=== PATIENT | male | born 1955 | race Caucasian/White ===

== ENCOUNTER 2020-06-13 07:35 | Outpatient (CLI) | payer BC, SELFPAY ==
--- NOTE | 2020-06-17 15:05 | SLEEP_ITS ---
Home Sleep Test DATE OF STUDY: 06/13/2020 ORDERING PROVIDER: SANCHEZ Fox. REASON FOR THIS STUDY: Hypersomnia. HISTORY: This patient is a 64-year-old man, 5 feet 9 inches tall, weighing 175 pounds with a body mass index of 25.8. He does occasionally snore and it is occasionally loud enough that others complain about it. He occasionally wakes at night with belching, heartburn or coughing. He rarely awakens from sleep feeling short of breath. He rarely has trouble sleeping with a cold. He does not wake up gasping for breath at night. He rarely has breathing problems at night observed by others. He rarely sweats excessively at night. He does not have pounding heartbeats at night or irregular heartbeats at night. He occasionally falls asleep during the day, occasionally involuntarily, never while driving. He does not have loss of muscle tone with strong emotion. He does not have daytime difficulties due to excessive sleepiness. He does not feel paralyzed on waking or falling asleep. He rarely has vivid dreamlike scenes upon awakening or falling asleep. He is never afraid to go to sleep and does not have nightmares. He rarely remembers his dreams. He occasionally has racing thoughts. He never feels sad, depressed, anxious, and does not have muscular tension. He occasionally notices parts of his body jerking. He rarely kicks at night. He occasionally has crawly achy feelings in his legs. He frequently has leg pain at night. He does not have morning jaw pain and does not grind his teeth at night. He occasionally is bothered by pain during the day and is awakened with pain at night, occasionally feels stiff in the morning with sore achy muscles and pain in the neck and spine. He takes antacids regularly. Bedtime is 08:30 p.m. taking 20 or 30 minutes to fall asleep, typically waking 3-4 times at night, staying awake on average 1 minute. He will look at the clock when he awakens. He wakes for the day at 04:00 a.m. On weekends, he goes to bed at 10:00 p.m. and wakes at 07:00 a.m. so there is some recovery sleep on the weekends. He does not take naps usually. A short nap may be refreshing. MEDICAL COMORBIDITIES: Diabetes mellitus type 2, hypertension, osteoarthritis of the knees, erectile dysfunction, COPD, gastroesophageal reflux disease, vitamin B12 deficiency. MEDICATIONS: 1. Symbicort 160/4.5 two puffs twice a day p.r.n. 2. Meloxicam 15 mg daily. 3. Omeprazole 40 mg delayed release once daily. 4. Amlodipine 10 mg a day. 5. Dulaglutide 1.5 mg injected. 6. Metformin 500 mg 2 tablets b.i.d. 7. Irbesartan 150 mg daily. 8. Sildenafil 20 mg t.i.d. for pulmonary hypertension. HABITS: Never smoked tobacco. Caffeine, 2 servings a day. Alcohol, beer 2 per day. DESCRIPTION OF THE STUDY: On the [place] Sleepiness Scale, his score is 11, elevated. This test was conducted as an unattended type 3 portable home sleep test using a 4 channel monitoring with respiratory effort channel, snoring channel, oxygen saturation channel, and heart rate channel. The study was scored using [facility] guidelines. The apnea-hypopnea index is 2.4, normal. The respiratory disturbance index is slightly elevated 7.1. His lowest desaturation is 86%. His oxygen desaturation index is 1.9. He had 4 apneas all were obstructive. He had 14 hypopneas and 774 snoring events. He had 14 desaturations and spent 1 minute below 88% saturation. Heart rate ranged from 74 to 121. IMPRESSION: This home sleep test does not show evidence of significant sleep-disordered breathing. The apnea-hypopnea index is 2.4. The lowest saturation was 86% briefly. He had minimal apneas and hypopneas. He does not appear to have significant sleep-disordered breathing. The patient's excessive
== END 2020-06-13 07:36 | disposition home or self-care (01) ==
LOC: ANHCSM 07:40
PROVIDERS: PCP Physician Assistant; Visit Provider Physician Assistant
DX: G47.10 Hypersomnia, unspecified (principal)
CPT/HCPCS: 95806